=== PATIENT | male | born 1955 | race Caucasian/White ===

== ENCOUNTER 2017-03-13 17:48 | Emergency (ER) | payer BC ==
[2017-03-13] MEDS ORDERED: ORPHENADRINE CITRATE 30 MG/ML VIAL IM ONE (18:04)
[2017-03-13] MEDS ORDERED: KETOROLAC TROMETHAMINE 60 MG/2 ML VIAL IM ONE ×2 (18:04→18:13)
[2017-03-13] MEDS ORDERED: ORPHENADRINE CITRATE 30 MG/ML VIAL ONE (18:13)
--- NOTE | 2017-03-13 18:34 | ERNOTE ---
Back Pain ER HPI Time Seen by Provider: 03/13/17 17:58 Source: patient Exam Limitations: no limitations Immunizations: IMMUNIZATION HX Immunizations Up to Date Yes History of Influenza Vaccine Yes Hx Pneumococcal Vaccination No Allergies/Adverse Reactions: Allergies No Known Allergies Allergy (Verified 06/01/15 13:30) Home Medications: HOME MEDICATIONS Atorvastatin Calcium [Lipitor] 20 mg PO HS 03/13/17 [Last Taken Unknown] Cyclobenzaprine HCl [Flexeril] 10 mg PO TID PRN #30 tab 03/13/17 [Last Taken Unknown] Escitalopram Oxalate [Lexapro] 10 mg PO DAILY 03/13/17 [Last Taken Unknown] HYDROcodone/ACETAMINOPHEN [Phenix 5-325] 1 each PO Q4H #20 tablet 03/13/17 [Last Taken Unknown] Lorazepam [Ativan] 0.5 mg PO BID 03/13/17 [Last Taken Unknown] Meloxicam [Mobic] 15 mg PO DAILY 03/13/17 [Last Taken Unknown] Metoprolol Succinate 15 mg PO 03/13/17 [Last Taken Unknown] Naproxen [Naprosyn] 500 mg PO BID #60 tablet 03/13/17 [Last Taken Unknown] Tamsulosin HCl [Flomax] 0.4 mg PO DAILY@1800 #7 capsule 03/13/17 [Last Taken Unknown] Zolpidem Tartrate [Edluar] 10 mg SL 03/13/17 [Last Taken Unknown] Narrative: Patient has fairly chronic back pain and appeared to exacerbate his back pain to some degree by doing yardwork. He describes the pain as moderate in intensity and worse when he tries to bend, most the pain is in the right paraspinal area. Describes muscle spasms in the area as well Timing: Reports: constant Quality/Severity: Reports: moderate Location of pain: Reports: lower back Activities at Onset: Reports: activity Recent Injury?: Reports: no Possible Precipitating Factor: Reports: lifting, turning/bending Modifying Factors - (Improves): Reports: nothing Modifying Factors - (Worsens): Reports: movement flexion Associated Symptoms: Reports: none Review of Systems - Review of Systems Constitutional: Present: See HPI EYE: Present: no symptoms reported ENT: Present: no symptoms reported Respiratory: Present: no symptoms reported Cardiology: Present: no symptoms reported Gastrointestinal/Abdominal: Present: no symptoms reported Genitourinary: Present: no symptoms reported Musculoskeletal: Present: back pain, muscle pain Skin: Present: no symptoms reported Neurological: Present: no symptoms reported Endocrine: Present: no symptoms reported Hematologic/Lymphatic: Present: no symptoms reported Psych: Present: no symptoms reported - Patient's Past Medical History Patient History - Medical: Kidney stone, Other - back pain Patient History - Cardiac/Respiratory: Hypertension, Hyperlipidemia Patient History - Cancer: Melanoma, Skin Patient History - Surgical Procedures: Colonoscopy, T & A, Other Patient History - Other: None - Social History Living Situations: home Abuse History: No History of abuse Psych History: No pertinent hx Smoking Status: Never smoker Have you smoked in the past 12 months: No Do you dip or chew tobacco: No Patient requests Smoking Cessation Consult: No Initiate information on Smoking Cessation: No Alcohol Use: none Drug Use: none - Immunizations Immunizations Up to Date: Yes Hx Pneumococcal Vaccination: No History of Influenza Vaccine: Yes Physical Exam - Physical Exam General Appearance: Present: wd/wn, alert, moderate distress Eye Exam: Normal inspection: bilateral, PERRL: bilateral Ears, Nose, Throat: Present: normal ENT inspection, H, normal pharynx Neck: Present: normal inspection, nontender Respiratory: Present: no respiratory distress, normal breath sounds, no accessory muscle use, chest nontender, lungs clear Cardiovascular/Chest: Present: regular rate, rhythm, no murmur, normal peripheral pulses Gastrointestinal/Abdominal: Present: normal bowel sounds, nontender, nondistended, soft, no organomegaly Rectal Exam: Present: deferred Back Exam: Present: decreased range of motion, muscle spasm Extremity Exam: Present: normal inspection, non-tender, no edema, normal range of motion Neurological Exam: Present: alert, oriented, normal mood/affect Skin Exam: Present: normal color, warm/dry Lymphatic Exam: Present: no adenopathy ED Progress - Results and Orders Patient's Lab Results:: I have reviewed the patient's lab results. - Vital Signs Patient's Vital Signs:: I have reviewed the patient's vital signs. Vital Signs: Vital Signs 03/13/17 17:51 Temperature 37.2 C Pulse Rate 80 Respiratory 20 Rate Blood Pressure 152/91 O2 Sat by Pulse 95 Oximetry - X-Ray X-Ray #1 X-Ray: lumbosacral Interpretation: Interp. by me - Progress/Reassessment Chief Complaint: Back Pain Progress:: Improved Plan - Plan Plan: While this appears to be back pain we certainly have to entertain the possibility that he passed a kidney stone. Patient states his pain is now down to 1 or 2 he feels substantially better. Because we have blood in the urine we will put him on Flomax as well as anti-inflammatories and muscle relaxants. Patient was told he needs to follow-up with his family physician and in the event that the pain returns he was told we may very well need to do a CT scan to make sure everything is open in the renal system. Departure Clinical Impression: Back pain Qualifiers: Back pain location: low back pain Chronicity: acute Back pain laterality: right Sciatica presence: without sciatica Qualified Code(s): M54.5 - Low back pain - Departure Disposition: Home self-care Condition: Fair Instructions: Back Pain, Adult, Renal Colic, [id number] Referrals: Yue Frazier FNP [Primary Care Provider] - Prescriptions: Cyclobenzaprine HCl [Flexeril] 10 mg PO TID PRN #30 tab PRN Reason: MUSCLE SPASMS HYDROcodone/ACETAMINOPHEN [Phenix 5-325] 1 each PO Q4H #20 tablet Naproxen [Naprosyn] 500 mg PO BID #60 tablet Tamsulosin HCl [Flomax] 0.4 mg PO DAILY@1800 #7 capsule
[2017-03-13 18:44] LABS: Urine Bilirubin Negative (NEGATIVE); Urine Ketone 5 mg/dL (NEGATIVE); Urine Nitrite Negative (NEGATIVE); Urine Protein Negative (NEGATIVE); Urine Specific Gravity 1.025 SP.GR. (1.005-1.030); Urine Urobilinogen Normal (NORMAL)
[2017-03-13 18:53] VITALS: BP 149/92
[2017-03-13 18:58] LABS: Urine Appearance Clear; Urine Bacteria 1+; Urine Blood 5 /ul (NEGATIVE); Urine Color Yellow; Urine Mucus Many - 3+; Urine RBC 0-5 /hpf (0-5); Urine WBC 0-5 /hpf (0-5)
== END 2017-03-13 19:21 | disposition home or self-care (01) ==
LOC: ER 17:48
DX: M54.5 Low back pain (principal); R31.9 Hematuria, unspecified